=== PATIENT | male | born 1995 | race Caucasian/White ===

== ENCOUNTER 2022-07-29 11:02 | Emergency (ER) | payer SELFPAY ==
[~2022-07-29] VITALS: Ht 167.6 cm; Wt 82.0 kg
[2022-07-29 12:04] LABS: BASOPHILS % 0.4 % (0.0-2.0); HEMATOCRIT. 43.4 % (42.0-52.0); HEMOGLOBIN. 15.4 g/dL (14.0-18.0); LYMPHOCYTES % 17.1 % (20.0-50.0); MEAN CORPUSCULAR HEMOGLOBIN 33.6 pg (28.0-32.0); MEAN CORPUSCULAR VOLUME 94.6 fL (80.0-94.0); MEAN PLATELET VOLUME 7.7 fl (7.4-10.4); MONOCYTES % 6.1 % (2.0-8.0); NEUTROPHILS % 75.4 % (40.0-76.0); PLATELET 329 x1000/uL (130-400); RED BLOOD CELL COUNT 4.59 mill/uL (4.7-6.1); RED CELL DISTRIBUTION WIDTH 13.1 % (11.6-14.6)
[2022-07-29 12:10] LABS: CHLORIDE 108 mEq/L (98-107)
[2022-07-29 12:22] LABS: ETHANOL BLOOD < 10 mg/dL
[2022-07-29 21:34] LABS: CLARITY URINE CLEAR (CLEAR); COLOR URINE YELLOW (YELLOW); KETONES URINE TRACE (NEGATIVE); LEUKOCYTE ESTERASE URINE NEGATIVE (NEGATIVE); NITRITE URINE NEGATIVE (NEGATIVE); OCCULT BLOOD URINE NEGATIVE (NEGATIVE); PROTEIN URINE TRACE (NEGATIVE); SPECIFIC GRAVITY URINE 1.027 (1.005-1.030); UROBILINOGEN URINE 0.2 E.U./dL (0.2-1.0)
[2022-07-29] MEDS ORDERED: LORAZEPAM 1MG TABLET PO ONE (21:45)
[2022-07-30 01:16] LABS: *AMPHETAMINES SCREEN URINE NEGATIVE (NEGATIVE); *BARBITURATES SCREEN URINE NEGATIVE (NEGATIVE); *BENZODIAZEPINES SCREEN URINE NEGATIVE (NEGATIVE); *COCAINE SCREEN URINE NEGATIVE (NEGATIVE); CANNABINOID URINE SCREEN PRESUMTIVE POSITIVE (NEGATIVE); METHADONE URINE SCREEN NEGATIVE (NEGATIVE); OPIATES URINE SCREEN NEGATIVE (NEGATIVE); PHENCYCLIDINE URINE SCREEN NEGATIVE (NEGATIVE)
[2022-07-30] MEDS ORDERED: LORAZEPAM 1MG TABLET PO NR (14:15)
[2022-07-30] MEDS: ARIPIPRAZOLE 5MG TABLET PO SCH ×2 (14:52→22:03)
[2022-07-30] MEDS ORDERED: TRAZODONE HCL 50MG TABLET PO SCH (21:00)
[2022-07-31] MEDS ORDERED: LORAZEPAM 1MG TABLET PO ONE (00:45)
[2022-07-31] MEDS: ARIPIPRAZOLE 5MG TABLET PO SCH (11:37)
[2022-07-31] MEDS ORDERED: ABIL10 PO (12:56)
[2022-07-31] MEDS ORDERED: TRAZ-251 PO (12:56)
[2022-07-31 15:01] VITALS: BP 115/59
== END 2022-07-31 15:01 | disposition home or self-care (01) ==
LOC: ER 11:02
DX: S69.81XA Other specified injuries of right wrist, hand and finger(s), initial encounter (principal); R44.0 Auditory hallucinations; X58.XXXA Exposure to other specified factors, initial encounter; Y93.89 Activity, other specified; Y92.89 Other specified places as the place of occurrence of the external cause; Y99.8 Other external cause status; Z20.822 Contact with and (suspected) exposure to COVID-19
CPT/HCPCS: 36415; 73090; 73130; 80053; 80305; 80307; 80320; 80329; 81003; 85025; 99285; C9803; U0003; U0005; G0480